=== PATIENT | female | born 1950 | race Caucasian/White ===

== ENCOUNTER 2018-02-28 06:27 | Outpatient (CLI) | payer MEDICARE, OTHER ==
[2018-02-28] MEDS ORDERED: IODIXANOL 320 MG/ML 100 ML VIAL. (07:05)
[2018-02-28] MEDS ORDERED: LIDOCAINE 2% 20 ML VIAL. (07:05)
[2018-02-28] MEDS ORDERED: HEPARIN for ARTERIAL LINE 1,500 ML (07:05)
[2018-02-28 07:20] LABS: HEMATOCRIT 38.5 % (36.0-47.0); HEMOGLOBIN 12.6 g/dL (12.0-15.5); MEAN CORPUSCULAR HEMOGLOBIN 26 pg (25-35); MEAN CORPUSCULAR HGB CONC 33 g/dL (31-37); MEAN CORPUSCULAR VOLUME 79 fL (79-100); PLATELET COUNT 210 x10^3/uL (140-400); RED BLOOD COUNT 4.89 x10^6/uL (3.50-5.40); RED CELL DISTRIBUTION WIDTH 32.9 % (11.5-14.5); WHITE BLOOD COUNT 6.8 x10^3/uL (4.0-11.0)
[2018-02-28 07:36] LABS: ANION GAP 9 (6-14); BLOOD UREA NITROGEN 7 mg/dL (7-20); CALCIUM 9.5 mg/dL (8.5-10.1); CARBON DIOXIDE 29 mmol/L (21-32); CHLORIDE 103 mmol/L (98-107); CREATININE 0.7 mg/dL (0.6-1.0); GFR 83.5; GLUCOSE 98 mg/dL (70-99); POTASSIUM 4.8 mmol/L (3.5-5.1); SODIUM 141 mmol/L (136-145)
[2018-02-28 07:59] LABS: PARTIAL THROMBOPLASTIN TIME 28 SEC (24-38); PROTHROMBIN TIME PATIENT 12.5 SEC (11.7-14.0)
[2018-02-28] MEDS ORDERED: MIDAZOLAM HCL/PF 2 MG/2 ML VIAL. (08:14)
[2018-02-28] MEDS: IV NORMAL SALINE 1000ML BAG 1,000 ML IV (08:15)
[2018-02-28] MEDS ORDERED: fentaNYL PF VIAL 100 MCG/2 ML VIAL (08:15)
[2018-02-28] MEDS: IODIXANOL 320 MG/ML 100 ML VIAL. IART (08:50)
[2018-02-28] MEDS: LIDOCAINE 2% 20 ML VIAL. IJ (08:51)
[2018-02-28] MEDS: fentaNYL PF VIAL 100 MCG/2 ML VIAL IV (08:51)
[2018-02-28] MEDS: MIDAZOLAM HCL/PF 2 MG/2 ML VIAL. IV (08:51)
== END 2018-02-28 12:18 | disposition home or self-care (01) ==
LOC: CCL 06:27
DX: I70.213 Atherosclerosis of native arteries of extremities with intermittent claudication, bilateral legs (principal); I10 Essential (primary) hypertension; E78.00 Pure hypercholesterolemia, unspecified; K21.9 Gastro-esophageal reflux disease without esophagitis; D64.9 Anemia, unspecified; Z98.51 Tubal ligation status; Z79.01 Long term (current) use of anticoagulants; Z98.890 Other specified postprocedural states; Z72.89 Other problems related to lifestyle; Z87.891 Personal history of nicotine dependence
CPT/HCPCS: 36140; 36415; 75630; 75710; 80048; 85027; 85610; 85730; 99152; 99153; C1769; C1892; J1644; J2250; J3010; J7030

== ENCOUNTER → 2018-03-07 | Outpatient (CLI) | payer MEDICARE, OTHER ==
[2018-03-07] MEDS: IOHEXOL 300 MG/ML 100ML VIAL. IV (08:33)
== END | disposition home or self-care (01) ==
LOC: CT 08:07
DX: I10 Essential (primary) hypertension (principal); I70.0 Atherosclerosis of aorta; I73.9 Peripheral vascular disease, unspecified; I77.4 Celiac artery compression syndrome; I70.1 Atherosclerosis of renal artery; E78.00 Pure hypercholesterolemia, unspecified; D50.9 Iron deficiency anemia, unspecified
CPT/HCPCS: 75635; Q9967

== ENCOUNTER 2019-10-12 10:46 | Emergency (ER) | payer MEDICARE, OTHER ==
[2018-02-28 11:50] VITALS: BP 144/71
[~2019-10-12 10:46] MED LIST: ASPI-630 PO; BUPR100T11 PO; FERR325T72 PO; HYDR-2145 PO; LOSA-73 PO; PANT40TA77 PO; SIMV20TA18 PO
== END 2019-10-12 12:15 | disposition left against medical advice (07) ==
LOC: ER 10:46
DX: E61.1 Iron deficiency (principal); R53.82 Chronic fatigue, unspecified; Z53.21 Procedure and treatment not carried out due to patient leaving prior to being seen by health care provider

== ENCOUNTER → 2019-10-16 | Outpatient (CLI) | payer MEDICARE, OTHER ==
[2018-02-28 11:50] VITALS: BP 144/71
--- NOTE | 2019-10-16 10:41 | RAD ---
Examination: CT LOW DOSE LUNG SCREENING History: 50 pack-year smoking history Comparison/Correlation: None Findings: Axial images of the chest were obtained without contrast. Sagittal and coronal reformatted images were provided. Exam was performed with low-dose protocol. Calcified trauma to right lateral lower lung field adjacent to the pleural measuring 1 cm diameter is present. Mild centrilobular pulmonary lung myers noted. Punctate calcified granuloma at the right lateral upper lung field noted. No pleural or pericardial effusion. No enlarged thoracic lymph nodes. Partially visualized upper abdomen is unremarkable. Bony structures are unremarkable other than spurring at multiple levels of the spine. Partially visualized upper abdomen is unremarkable. Impression: LungRADS category 1-negative. Annual low-dose lung cancer screening CT evaluation is recommended. Centrilobular emphysema. PQRS Compliance Statement: One or more of the following individualized dose reduction techniques were utilized for this examination: 1. Automated exposure control 2. Adjustment of the mA and/or kV according to patient size 3. Use of iterative reconstruction technique Electronically signed by: Aashish Coombs MD (10/16/2019 10:38 AM) [facility]
== END | disposition home or self-care (01) ==
LOC: CT 09:39
PROVIDERS: ATTEND Family Medicine
DX: Z12.2 Encounter for screening for malignant neoplasm of respiratory organs (principal); J43.2 Centrilobular emphysema; F17.210 Nicotine dependence, cigarettes, uncomplicated
CPT/HCPCS: G0297

== ENCOUNTER → 2020-12-10 | Outpatient (CLI) | payer MEDICARE, OTHER ==
[2018-02-28 11:50] VITALS: BP 144/71
--- NOTE | 2020-12-10 12:12 | KCIC ---
CT of the chest without contrast, low dose lung cancer screening 12/10/2020 10:28 AM Indication: Reason: Lung cancer screening, smoker of 50 yrs., 1pk/day / Spl. Instructions: / History : Technique: Multiple contiguous axial images were obtained through the chest without administration of intravenous iodinated contrast. Low dose lung cancer screening protocol was used. COMPARISON STUDY: CT examination of the chest without contrast October 16, 2019 Findings: Heart size is normal. No pericardial effusion is appreciated. No pathologically enlarged mediastinal lymph nodes are seen. . The thoracic aorta is grossly normal in course and contour. Centrilobular em physematous changes again noted. There is no pneumothorax or pleural effusion. No acute infiltrates a re seen. No concerning pulmonary nodules are identified. Limited visualization of the upper abdomen d emonstrates no acute abnormality. No acute osseous abnormalities are appreciated. Impression: Lung RADS category 1-negative. Annual low-dose lung cancer screening CT evaluation is r ecommended. CT DOSING PQRS STATEMENT: One or more of the following individualized dose reduction techniques were utilized for this examinat ion: 1. Automated exposure control 2. Adjustment of the mA and/or kV according to patient size 3. Use of iterative reconstruction technique Electronically signed by: Jj Dixon MD (12/10/2020 12:10 PM) [id number]
== END ==
LOC: KCIC CT 10:25
PROVIDERS: ATTEND Family Medicine
DX: F17.210 Nicotine dependence, cigarettes, uncomplicated (principal); Z12.2 Encounter for screening for malignant neoplasm of respiratory organs
CPT/HCPCS: 71271